=== PATIENT | male | born 1990 | race Caucasian/White ===

== ENCOUNTER 2017-05-03 01:23 | Emergency (ER) | payer SELFPAY ==
[2017-05-03] MEDS ORDERED: Lidocaine 2% Inj (20ml) ONE (02:05)
[2017-05-03] MEDS ORDERED: Tdap Vaccine 0.5 ml Vial (10-64 yrs) IM ONE ×2 (02:44→02:56)
[2017-05-03] MEDS ORDERED: Bacitracin 500 Units/gm Oint Foilpak UD TOP ONE (02:44)
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
[2017-05-03] MEDS ORDERED: Bacitracin 500 Units/gm Oint Foilpak UD ONE (02:56)
[2017-05-03 05:15] VITALS: BP 113/71; PULSE 60; RESP 22; TEMP 97.9
--- NOTE | 2017-05-03 09:20 | RAD ---
PROCEDURE: Right Hand Radiographs. HISTORY: s/p fall, landed onhand COMPARISON: None. FINDINGS: BONES: No acute fracture. JOINTS: Unremarkable. SOFT TISSUES: Normal. OTHER FINDINGS: None. IMPRESSION: No demonstrated fracture or dislocation.
[2017-05-05 18:11] VITALS: O2SAT 100
== END 2017-05-03 05:15 | disposition home or self-care (01) ==
LOC: C.ER 01:23
DX: S00.31XA Abrasion of nose, initial encounter (principal); S60.221A Contusion of right hand, initial encounter; W18.30XA Fall on same level, unspecified, initial encounter; Y93.55 Activity, bike riding; Y92.410 Unspecified street and highway as the place of occurrence of the external cause